=== PATIENT | male | born 1950 | race Caucasian/White ===

== ENCOUNTER 2019-10-27 22:35 | Inpatient (IN) | payer OTHER ==
[~2019-10-27] VITALS: Ht 182.9 cm; Wt 98.6 kg
[~2019-10-27 22:35] MED LIST: ATEN100 PO; DOXA4 PO; LISI20 PO; PRAV20 PO
[2019-10-27] MEDS ORDERED: METO50ER PO (23:05)
[2019-10-27] MEDS ORDERED: ACET500 PO (23:06)
[2019-10-27] MEDS ORDERED: DOXE50 PO (23:06)
[2019-10-27] MEDS ORDERED: METF500C PO (23:06)
[2019-10-27 23:37] LABS: BASOPHILS ABSOLUTE AUTO 0.01 K/mm3 (0.00-0.23); BASOPHILS PERCENT AUTO 0 % (0-2); EOSINOPHILS PERCENT AUTO 0 % (0-6); Hemoglobin 15.2 g/dL (13.5-17.5); IMMATURE GRAN ABSOLUTE AUTO 0.03 K/mm3 (0.00-0.10); IMMATURE GRAN PERCENT AUTO 1 % (0-1); LYMPHOCYTES ABSOLUTE AUTO 0.28 K/mm3 (0.84-5.20); LYMPHOCYTES PERCENT AUTO 6 % (21-46); MONOCYTES ABSOLUTE AUTO 0.32 K/mm3 (0.16-1.47); MONOCYTES PERCENT AUTO 7 % (4-13); Mean Corpuscular HGB 30.6 pg (26.0-34.0); Mean Corpuscular HGB Conc 34.5 g/dL (31.5-36.5); Mean Corpuscular Volume 89 fL (80-100); Mean Platelet Volume 10.3 fL (9.1-12.4); NEUTROPHILS ABSOLUTE AUTO 4.27 K/mm3 (1.96-9.15); NEUTROPHILS PERCENT AUTO 87 % (41-73); Platelet Count 119 K/mm3 (150-400); RDW Coefficient Variation 11.9 % (11.7-14.2); RDW Standard Deviation 38.7 fL (35.1-46.3); Red Blood Cell Count 4.96 M/mm3 (4.30-5.90); White Blood Cell Count 4.91 K/mm3 (4.00-11.30)
[2019-10-27 23:55] LABS: Alanine Aminotransfer (ALT/SGP 28 U/L (12-78); Albumin, Blood 3.4 g/dL (3.4-5.0); Alk Phos 96 U/L (50-136); Anion Gap 11 mmol/L (6-16); Aspartate Aminotrans (AST/SGOT 19 U/L (12-37); Bilirubin, Total 1.4 mg/dL (0.1-1.0); Blood Urea Nitrogen 23 mg/dL (8-24); Bun/Creatinine Ratio 22.3 (12.0-20.0); CO2, Blood 23 mmol/L (21-32); Calcium, Blood 8.5 mg/dL (8.5-10.1); Chloride, Blood 101 mmol/L (98-108); Creatinine, Blood 1.03 mg/dL (0.60-1.20); Globulin, Blood 3.5 g/dL (2.2-4.0); Glomerular Filtration Rate >60 (60-); Glucose, Blood 156 mg/dL (70-99); Potassium, Blood 3.5 mmol/L (3.5-5.5); Sodium, Blood 135 mmol/L (136-145); Total Protein, Blood 6.9 g/dL (6.4-8.2)
[2019-10-28 04:27] LABS: Appearance, Urine Clear (Clear); Color, Urine Amber (P-Yellow); Glucose Qualitative, Urine Neg (Neg); Leukocyte Esterase, Urine Neg (Neg); Nitrite, Urine Neg (Neg); Protein, Urine Neg (Neg); Source, Urine Clean Catch
[2019-10-28] MEDS ORDERED: Isosorbide Mono30 MG PO (04:27)
[2019-10-28 04:28] LABS: Bacteria Few /hpf; Bilirubin, Urine Neg (Neg); Blood, Urine 1+ (Neg); Ketones, Urine Neg (Neg); Red Blood Cells, Urine 0-2 /hpf (0-2); Squamous Epithelial Cells Not Seen /hpf (Few); Urobilinogen, Urine NORM (Normal); White Blood Cells, Urine 0-2 /hpf (0-5)
[2019-10-28] MEDS ORDERED: ATOR20 PO (04:28)
[2019-10-28] MEDS ORDERED: LOSA50 PO (04:28)
[2019-10-28] MEDS ORDERED: METF500 PO (04:28)
[2019-10-28] MEDS ORDERED: AMLO10 PO (04:28)
[2019-10-28] MEDS ORDERED: GLUC500 PO (04:29)
[2019-10-28] MEDS ORDERED: Metoprolol Tart25 MG PO (04:29)
[2019-10-28] MEDS ORDERED: DOXA4 PO (04:29)
[2019-10-28] MEDS ORDERED: CHLO25B PO (04:31)
[2019-10-28 07:27] LABS: Adenovirus Not Detected (NOT DETECT); Bordetella pertussis Not Detected (NOT DETECT); Chlamydophila pneumoniae Not Detected (NOT DETECT); Coronavirus 229E Not Detected (NOT DETECT); Coronavirus HKU1 Not Detected (NOT DETECT); Coronavirus NL63 Not Detected (NOT DETECT); Coronavirus OC43 Not Detected (NOT DETECT); Human Metapneumovirus Not Detected (NOT DETECT); Human Rhinovirus/Enterovirus Not Detected (NOT DETECT); Influenza A Not Detected (NOT DETECT); Influenza A/2009-H1 Not Detected (NOT DETECT); Influenza A/H1 Not Detected (NOT DETECT); Influenza A/H3 Not Detected (NOT DETECT); Influenza B Not Detected (NOT DETECT); Mycoplasma pneumoniae Not Detected (NOT DETECT); Parainfluenza Virus 1 Not Detected (NOT DETECT); Parainfluenza Virus 2 Not Detected (NOT DETECT); Parainfluenza Virus 3 Not Detected (NOT DETECT); Parainfluenza Virus 4 Not Detected (NOT DETECT); Respiratory Syncytial Virus Not Detected (NOT DETECT)
--- NOTE | 2019-10-28 07:30 | NUR ---
PT TO ICU @ 0454 VIA GUREFRAIN WITH ED RN. PT ALERT AND ORIENTED TO SELF, PLACE, EVENT AND FOLLOWING DIRECTIONS. PT TACHYPNEIC, DENIES SOB, ON 2L O2 PER NC, CRACKLES NOTED BILAT TO THE BASES, HR 90'S-110, BP STABLE WITH SBP 120'S. LACTIC ACID 2.5, NOTIFIED DR DELVALLE, NO NEW ORDERS AT THIS TIME. PT DECLINED FLU VACCINE AND BUMEX. RESTING COMFORTABLY IN BED, ORIENTED TO ROOM AND CALL LIGHT, CALL LIGHT WITHIN REACH. REPORT GIVEN TO PRISCILA AZEVEDO.
--- NOTE | 2019-10-28 07:39 | NUR ---
START OF SHIFT NOTE: RECEIVED REPORT FROM PRITI JONES RN, ASSUMED CARE, PATIENT IS AWAKE, ALERT AND ORIENTED, DENIES PAIN, AFEBRILE, C/O BEING REALLY TIRED, STATED "YESTERDAY TOOK A LOT OUT OF ME", PATIENT HAD T-MAX OF 103.8, NOW 97.9, PATIENT IS URINATING WITHOUT ANY PROBLEMS, HAD 325 CC OUT FOR ME, ON 2L NC, O2 SATURATION IN MID 90'S, LUNGS SOUNDS ARE SLIGHTLY CRACKLY ON RIGHT UPPER/MIDDLE/LOWER LOBES, LUNGS CLEAR ON LEFT, A-FIB, MURMUR PRESENT, PATIENT REPORTS HE HAD THE MURMUS FOR YEARS, BOWEL TONES HYPOACTIVE, PEDAL PULSES PLAPABLE, PATIENT DENIES ANY NEEDS AT THIS TIME, CALL LIGHT IN REACH, WILL CONTINUE TO MONITOR.
--- NOTE | 2019-10-28 08:48 | NUR ---
PATIENT RESTING COMFORTABLY, TOOK AM MEDICATION WITH NO PROBLEM SWALLOWING, USES URINAL APPROPRIATELY, CALL LIGHT IN REACH, WILL CONTINUE TO MONITOR.
--- NOTE | 2019-10-28 08:51 | NUR ---
LAB IN TO DRAW LACTIC ACID.
--- NOTE | 2019-10-28 09:56 | NUR ---
LACTIC ACID RESULT IS 3.1 WHICH IS UP FROM 2.5 LAST NIGHT, DR. RODRIGES WAS NOTIFIED, NO NEW ORDERS RECEIVED.
--- NOTE | 2019-10-28 10:28 | NUR ---
ATTEMPTED TO CALL DR. RODRIGES, LEFT MESSAGE, AWAITING CALL BACK.
--- NOTE | 2019-10-28 10:33 | NUR ---
DR. RODRIGES CALLED BACK, NOT CONCERNED ABOUT INCREASE IN LACTIC ACID, NEW ORDERS RECEIVED.
--- NOTE | 2019-10-28 11:15 | NUR ---
DR. RODRIGES IN TO SEE PATIENT, SPOKE WITH AND UPDATE PROVIDED, ALL QUESTIONS ANSWERED, NO NEW ORDERS AT THIS TIME.
--- NOTE | 2019-10-28 14:03 | NUR ---
PATIENT IS RESTING COMFORTABLY, EATING HIS MEALS, OTHERWISE SLEEPS MOST OF THE TIME, STATES THAT "HE IS STILL REALLY TIRED", AT BEDSIDE, CALL LIGHT IN REACH, WILL CONTINUE TO MONITOR.
--- NOTE | 2019-10-28 17:27 | NUR ---
PATIENT EATING DINNER WITH REALLY GOOD APPETITE, STATED EARLIER THAT HE IS "HUNGRY AND HE FEELS MUCH BETTER", AT BEDSIDE, CALL LIGHT IN REACH, WILL CONTINUE TO MONITOR.
--- NOTE | 2019-10-28 18:15 | NUR ---
SHIFT SUMMARY NOTE: NO ACUTE EVENTS DURING THIS SHIFT, PATIENT REMAINS AFEBRILE AND DENIES PAIN, MUCH MORE ALERT THIS EVENING, REPORTED THAT HE TAKES HIS BLOOD PRESSURE MEDICATION HALF AND HALF, IN THE MORNING AND AT NIGHT, PATIENT RECEIVED THEM TOGETHER THIS MORNING AND HIS BLOOD PRESSURE DROPPED INTO THE MID TO UPPER NINETIES, PATIENT SLEPT MOST OF THE DAY, REMAINS IN A-FIB WITH CONTROLLED HR IN 70'S TO 80'S, ON 2L NC SATING IN MID TO UPPER 90'S, USES URINAL AND HAD ADEQUATE OUTPUT, URINE CONTINUES TO APPEAR SLIGHTLY ORANGE, ONE SET OF BLOOD CULTURES SHOWED GRAM POSITIVE COCCI IN CHAINS, THIS RESULT WAS CALLED TO DR. RODRIGES, NO NEW ORDERS RECEIVED, PATIENT IS ALREADY ON LEVAQUIN, LR AT 100 CC/HR, BUT PATIENT IS EATING AND DRINKING WELL, FOR DETAILS SEE SHIFT ASSESSMENT DOCUMENTATION AND NURSES NOTES, AT BEDSIDE, CALL LIGHT IN REACH, WILL CONTINUE TO MONITOR.
[2019-10-29 03:44] LABS: BASOPHILS ABSOLUTE AUTO 0.01 K/mm3 (0.00-0.23); BASOPHILS PERCENT AUTO 0 % (0-2); EOSINOPHILS PERCENT AUTO 0 % (0-6); Hematocrit 40.6 % (37.0-53.0); IMMATURE GRAN ABSOLUTE AUTO 0.03 K/mm3 (0.00-0.10); IMMATURE GRAN PERCENT AUTO 1 % (0-1); LYMPHOCYTES ABSOLUTE AUTO 0.59 K/mm3 (0.84-5.20); LYMPHOCYTES PERCENT AUTO 9 % (21-46); MONOCYTES ABSOLUTE AUTO 0.61 K/mm3 (0.16-1.47); MONOCYTES PERCENT AUTO 10 % (4-13); Mean Corpuscular HGB 30.4 pg (26.0-34.0); Mean Corpuscular HGB Conc 34.5 g/dL (31.5-36.5); Mean Corpuscular Volume 88 fL (80-100); Mean Platelet Volume 10.8 fL (9.1-12.4); NEUTROPHILS PERCENT AUTO 80 % (41-73); Platelet Count 90 K/mm3 (150-400); RDW Coefficient Variation 11.9 % (11.7-14.2); RDW Standard Deviation 38.4 fL (35.1-46.3); White Blood Cell Count 6.34 K/mm3 (4.00-11.30)
[2019-10-29 03:58] LABS: Anion Gap 7 mmol/L (6-16); Blood Urea Nitrogen 20 mg/dL (8-24); Bun/Creatinine Ratio 21.6 (12.0-20.0); CO2, Blood 25 mmol/L (21-32); Calcium, Blood 8.1 mg/dL (8.5-10.1); Chloride, Blood 101 mmol/L (98-108); Creatinine, Blood 0.93 mg/dL (0.60-1.20); Glomerular Filtration Rate >60 (60-); Glucose, Blood 103 mg/dL (70-99); Potassium, Blood 3.6 mmol/L (3.5-5.5); Sodium, Blood 133 mmol/L (136-145)
--- NOTE | 2019-10-29 04:43 | NUR ---
SHIFT SUMMARY PATIENT HAS SLEPT OFF AND ON THROUGH NIGHT. BREATHING EFFORT SEEMS IMPROVED, ABLE TO MOVE AROUND IN BED WITH MINIMAL DYSPNEA. LUNG SOUNDS STILL CLEAR/DIMINISHED. GOOD URINARY OUTPUT. VSS. NO C/O PAIN. ASSESSMENT IS CHARTED. WILL CONTINUE TO MONITOR.
--- NOTE | 2019-10-29 07:24 | NUR ---
Received in room report from Tyler AZEVEDO. Patient just transfered to chair with full 1 assist and currently remains in chair. He is on 2 L O2 via NC and sats 95%. He denies any current needs or pain that needs intervention.He has 18ga IV LFA dressining intact and site WNL's and is infusing LR at 125ml/hr. He is tachy at 105 and BP WNL's, See VS in EMR. He use urinal appropriately. He is alert and oriented and is able to communicate his needs.
--- NOTE | 2019-10-29 09:30 | NUR ---
Patient back and forth to chair r/t to ECHO needing to be done. Dr Cruz has been into see patient and has coomunicated plan. He tolerated am meds and breakfast well. He states feeling a little stronger since being up and down. He remains on LR at 200ml/hr. lLinen changed.
--- NOTE | 2019-10-29 10:34 | NUR ---
eCHOCARDIOGRAM COMPLETED.
--- NOTE | 2019-10-29 12:11 | NUR ---
is her and wants to meet with Dr Cruz andfind out new plan. He was called and he will come see her. He has been using urinal about every hour and has a total of 1800 ml up to now. VSS. He is currently resting and lunch at his bedside when he awakens
--- NOTE | 2019-10-29 13:32 | NUR ---
Patient resting. LR reduced to 50ml/hr per Dr Cruz. No other significant changes. He remains on 2L O2 and sast low 90%'s. He has low grade fever 99.3 and will medicate with tylenol.
--- NOTE | 2019-10-29 15:00 | NUR ---
Dr Cruz ordered VERNON and called cardiology consult and talked with Dr Ron. Informed family that he may not see them til tomorrow if busy. He has been sleeping with brief awakenings for care. He denies any pain or other needs. has been at bedside and feels better that Dr Cruz spent the time to explain everything. VSS. He remains on 2 L O2 via NC and sats mid 90%'s.
--- NOTE | 2019-10-29 17:30 | NUR ---
Dr Ron has not been by to consult yet and family being patient. He remains sleeping, sats good on 2L. His CBG 109 and has not need coverage all day. No significant changes with patient. He remains on LR at 50ml/hr. Patient being seen by Dr Ron for murmur/ septic.
--- NOTE | 2019-10-30 06:01 | NUR ---
SHIFT SUMMARY PATIENT SLEPT WELL THROUGH NIGHT. AROUND 03:00 PATIENT GOT UP TO USE COMMODE, WAS S.O.B. AFTER GETTING BACK TO BED, AUDIBLY WHEEZING. OBTAINED UPDRAFT ORDERS, HOWEVER PATIENT RESOLVED BREATHING DIFFICULTY WITH REST. FAMILY REVEALED PATIENT NORMALLY WEARS CPAP AT NIGHT, OFFERED TO GO HOME AND GET IT. WAS BROUGHT IN, PATIENT ON MASK ~ 05:00 PER RT, THEY WERE ABLE TO OBTAIN CLEAN MASK/TUBING. VSS. NO C/O PAIN. ASSESSMENT IS CHARTED. WILL CONTINUE TO MONITOR.
[2019-10-30 10:27] LABS: BASOPHILS ABSOLUTE AUTO 0.02 K/mm3 (0.00-0.23); BASOPHILS PERCENT AUTO 0 % (0-2); EOSINOPHILS ABSOLUTE AUTO 0.01 K/mm3 (0.00-0.68); EOSINOPHILS PERCENT AUTO 0 % (0-6); Hematocrit 40.1 % (37.0-53.0); IMMATURE GRAN ABSOLUTE AUTO 0.03 K/mm3 (0.00-0.10); IMMATURE GRAN PERCENT AUTO 1 % (0-1); LYMPHOCYTES ABSOLUTE AUTO 1.03 K/mm3 (0.84-5.20); LYMPHOCYTES PERCENT AUTO 18 % (21-46); MONOCYTES ABSOLUTE AUTO 0.66 K/mm3 (0.16-1.47); MONOCYTES PERCENT AUTO 12 % (4-13); Mean Corpuscular HGB 30.7 pg (26.0-34.0); Mean Corpuscular HGB Conc 34.9 g/dL (31.5-36.5); Mean Corpuscular Volume 88 fL (80-100); NEUTROPHILS ABSOLUTE AUTO 4.01 K/mm3 (1.96-9.15); NEUTROPHILS PERCENT AUTO 70 % (41-73); Platelet Count 75 K/mm3 (150-400); RDW Standard Deviation 38.5 fL (35.1-46.3); Red Blood Cell Count 4.56 M/mm3 (4.30-5.90); White Blood Cell Count 5.76 K/mm3 (4.00-11.30)
--- NOTE | 2019-10-30 18:03 | NUR ---
SUMMARY Pt on room air for entire shift. EKG obtained. Atrial fibrilaltion with rate ranging between 95-105. No reports of chest pain. Mild dyspnea with exertion. Pt OOB to chair for dinner. Tolerated activity well. Plan for pt to have VERNON tomorrow at 1000. Will continue to closely monitor until care handoff and bedside report with oncoming RN.
--- NOTE | 2019-10-30 19:15 | NUR ---
ASSUMED CARE AT 1915. PT ALERT AND ORINTATED, FOLLOWS COMMANDS, MOVE ALL EXTREMETIES WEAKLY, ABLE TO AMBULATE TO TOILET. ON 2L NC. LOW GRADE TEMP, DENIES SOB OR CHEST PAIN.
--- NOTE | 2019-10-30 22:00 | NUR ---
PT ON CPAP
[2019-10-31 04:03] LABS: BASOPHILS ABSOLUTE AUTO 0.01 K/mm3 (0.00-0.23); BASOPHILS PERCENT AUTO 0 % (0-2); EOSINOPHILS ABSOLUTE AUTO 0.03 K/mm3 (0.00-0.68); EOSINOPHILS PERCENT AUTO 1 % (0-6); Hematocrit 41.2 % (37.0-53.0); Hemoglobin 14.2 g/dL (13.5-17.5); IMMATURE GRAN ABSOLUTE AUTO 0.03 K/mm3 (0.00-0.10); IMMATURE GRAN PERCENT AUTO 1 % (0-1); LYMPHOCYTES ABSOLUTE AUTO 1.09 K/mm3 (0.84-5.20); LYMPHOCYTES PERCENT AUTO 19 % (21-46); MONOCYTES ABSOLUTE AUTO 0.77 K/mm3 (0.16-1.47); MONOCYTES PERCENT AUTO 13 % (4-13); Mean Corpuscular HGB 30.3 pg (26.0-34.0); Mean Corpuscular HGB Conc 34.5 g/dL (31.5-36.5); Mean Corpuscular Volume 88 fL (80-100); Mean Platelet Volume 11.3 fL (9.1-12.4); NEUTROPHILS ABSOLUTE AUTO 3.97 K/mm3 (1.96-9.15); NEUTROPHILS PERCENT AUTO 67 % (41-73); Platelet Count 83 K/mm3 (150-400); RDW Coefficient Variation 12.1 % (11.7-14.2); RDW Standard Deviation 38.9 fL (35.1-46.3); Red Blood Cell Count 4.68 M/mm3 (4.30-5.90)
[2019-10-31 04:20] LABS: Alanine Aminotransfer (ALT/SGP 27 U/L (12-78); Albumin, Blood 2.5 g/dL (3.4-5.0); Albumin/Globulin Ratio 0.7 (0.8-1.8); Alk Phos 65 U/L (50-136); Anion Gap 7 mmol/L (6-16); Aspartate Aminotrans (AST/SGOT 50 U/L (12-37); Bilirubin, Total 1.3 mg/dL (0.1-1.0); Blood Urea Nitrogen 20 mg/dL (8-24); Bun/Creatinine Ratio 24.2 (12.0-20.0); CO2, Blood 29 mmol/L (21-32); Calcium, Blood 8.3 mg/dL (8.5-10.1); Chloride, Blood 99 mmol/L (98-108); Creatinine, Blood 0.83 mg/dL (0.60-1.20); Globulin, Blood 3.5 g/dL (2.2-4.0); Glomerular Filtration Rate >60 (60-); Glucose, Blood 107 mg/dL (70-99); Potassium, Blood 3.4 mmol/L (3.5-5.5); Sodium, Blood 135 mmol/L (136-145)
--- NOTE | 2019-10-31 06:43 | NUR ---
PT ALERT AND ORINETATED. FOLLOWS COMMANDS MOVES ALL EXTREMES. VITALS WNL. PT WAS NPO AT MIDNIGHT. ABLE TO BRUSH DENTURES AND WASH FACE IN MORNING. PT PENDING VERNON AT 1000. NO ACUTE EVENTS WILL CONTINUE TO MONITOR
--- NOTE | 2019-10-31 08:18 | NUR ---
DR NDIAYE IN TO SEE PT Provider reinforces plan for VERNON at 1000. No cardioversion planned as pt's rate is controlled. Provider clarifies that DNR/DNI status will be suspended for procedure. Pt verbalizes undertanding. Pt has been NPO since midnight. AM meds will be held until post procedure.
--- NOTE | 2019-10-31 10:30 | NUR ---
VERNON 1001- RT at bedside. SpO2 93%. Pt placed on 2 LPM NC 1004- Time out called by Dr Marcus 1005- Medications given. Refer to MAR and flowsheet 1007- Titrated up to 4 LPM NC by RT. SpO2 92%. Pt awake and communicating with staff 1009- Medications given. Refer to MAR and flowsheet 1020- Procedure complete. Pt awake and talking to staff.
--- NOTE | 2019-10-31 12:13 | NUR ---
UPDATE Gag reflex present. PO meds given. Pt ate lunch and tolerated well. Eliquis given.
--- NOTE | 2019-10-31 13:33 | NUR ---
TRANSFER TO PCU 11 Pt transferred from ICU 1 to PCU 11 via wheelchair. Pt's spouse notified of update. Dr Cruz updated. Chart, medications, and belongings transferred with patient.
--- NOTE | 2019-10-31 17:26 | NUR ---
SHIFT SUMMARY PT TRANSFERRED TO UNIT FROM ICU AT APPROXIMATELY 1330. VS STABLE. HR AFIB 90'S. BP STABLE. AFEBRILE AT THIS TIME. PT DENIES ANY PAIN. PT WEAK AND REQUIRES 1 ASSIST WITH WALKER FOR TRANSFER. STATUS CHANGED TO MEDICAL AT THIS TIME AND TELEMETRY HAS BEEN DISCONTINUED. AT BEDSIDE. PT REQUESTING A SHOWER AFTER DINNER THIS EVENING. WILL CONTINUE TO MONITOR AND REPORT TO ONCOMING RN. CALL LIGHT IN REACH.
--- NOTE | 2019-10-31 20:15 | NUR ---
ASSUMED CARE PATIENT IS AWAKE AND ALERT LYING IN BED IN NO SIGNS OF DISTRESS, 3 FAMILY IN ROOM. ALL VSS AND WNL, PATIENT DENIES PAIN, DENIES DISCOMFORT. O2 SATURATION ON ROOM AIR IS 94%. WILL CONTINUE TO MONITOR AND PROVIDE CARE; BED LOCKED AND LOW, CALL LIGHT IN REACH
[2019-11-01 03:32] LABS: BASOPHILS ABSOLUTE AUTO 0.01 K/mm3 (0.00-0.23); BASOPHILS PERCENT AUTO 0 % (0-2); EOSINOPHILS ABSOLUTE AUTO 0.08 K/mm3 (0.00-0.68); EOSINOPHILS PERCENT AUTO 1 % (0-6); Hematocrit 40.8 % (37.0-53.0); Hemoglobin 13.8 g/dL (13.5-17.5); IMMATURE GRAN ABSOLUTE AUTO 0.05 K/mm3 (0.00-0.10); IMMATURE GRAN PERCENT AUTO 1 % (0-1); LYMPHOCYTES PERCENT AUTO 23 % (21-46); MONOCYTES ABSOLUTE AUTO 0.85 K/mm3 (0.16-1.47); MONOCYTES PERCENT AUTO 13 % (4-13); Mean Corpuscular HGB Conc 33.8 g/dL (31.5-36.5); Mean Corpuscular Volume 89 fL (80-100); Mean Platelet Volume 10.3 fL (9.1-12.4); NEUTROPHILS ABSOLUTE AUTO 3.94 K/mm3 (1.96-9.15); NEUTROPHILS PERCENT AUTO 61 % (41-73); Platelet Count 101 K/mm3 (150-400); RDW Coefficient Variation 11.9 % (11.7-14.2); RDW Standard Deviation 38.5 fL (35.1-46.3); White Blood Cell Count 6.43 K/mm3 (4.00-11.30)
[2019-11-01 03:46] LABS: Anion Gap 8 mmol/L (6-16); Blood Urea Nitrogen 21 mg/dL (8-24); Bun/Creatinine Ratio 24.8 (12.0-20.0); CO2, Blood 27 mmol/L (21-32); Calcium, Blood 8.3 mg/dL (8.5-10.1); Chloride, Blood 99 mmol/L (98-108); Creatinine, Blood 0.85 mg/dL (0.60-1.20); Glomerular Filtration Rate >60 (60-); Glucose, Blood 124 mg/dL (70-99); Potassium, Blood 3.3 mmol/L (3.5-5.5); Sodium, Blood 134 mmol/L (136-145)
--- NOTE | 2019-11-01 07:28 | NUR ---
REPORT FROM JOLLY HAAS. PATIENT REPORTED HE SLEPT WELL. URINE DARK. FLUIDS ENCOURAGED.
--- NOTE | 2019-11-01 08:01 | NUR ---
SHIFT SUMMARY PATIENT'S FAMILY LEFT AROUND 2100, PATIENT RECEIVED EVENING MEDS WITHOUT ISSUE AND PROMPTLY WENT TO BED, USING HIS HOME CPAP. HE STAYED IN BED THE REST OF THE SHIFT, USING URINAL APPROPRIATELY FROM BED, WITH NO NEEDS, DENYING PAIN, DENYING DISCOMFORT. ALL VSS, O2 SATURATION ABOVE 92% ON ROOM AIR, THROUGHOUT SHIFT. CARE AND REPORT GIVEN TO ONCOMING SHIFT AT 0700, BED LOCKED AND LOW, CALL LIGHT IN REACH
--- NOTE | 2019-11-01 11:31 | NUR ---
MD VISIT DR. FARRIS IN.
--- NOTE | 2019-11-01 13:25 | NUR ---
MD VISIT DR. NDIAYE IN. WANTS PATIENT TO FOLLOW UP WITH HIM IN A COUPLE OF WEEKS
--- NOTE | 2019-11-01 13:31 | NUR ---
PATIENT USED CALL LIGHT TO ASK TO HAVE TEMP CHECKED BECAUSE HE FELT HOT. TEMP IN ROOM WAS 80. EXTRA BLANKET REMOVED AND TYLENOL GIVEN FOR TEMP 100.9
--- NOTE | 2019-11-01 15:12 | NUR ---
REPORT TO MARCOS Toth RN. PATIENT WILL BE MOVING TO 363
--- NOTE | 2019-11-01 16:00 | NUR ---
REPORT RECEIVED FROM GUI AZEVEDO PCU. PT TRANSPORTED TO ROOM 1330. PT SETTLED TO ROOM CALL LITE IN REACH, INDEPENDANT IN ROOM. CALLS APPROP. BED IN LOW POSITION
--- NOTE | 2019-11-01 17:05 | NUR ---
PT REFUSING INSULIN. STATES NOT TAKING AT HOME AND NOT TAKING HERE. WE ARE NOT DOING CBG'S/. PT REFUSING. CALLED DR FARRIS. PT STATES METFORMIN 500 MG PO DAILY IS WHAT HE TAKES FOR YEARS. DR AGREED TO HAVE HIM START ON METFORMIN AGAIN AND D.C INSULIN AND CBG.S DONE
--- NOTE | 2019-11-01 17:19 | NUR ---
PT PLEASANT COOP SINCE TX TO ROOM. HE JUST WALKED TO DOOR AND FELT A LITTLE UNSTEADY. RESTED HAND ON DOOR JAM, HAND SLIPPED DOWN WHEN UNSTEADY. ACCIDENTALLY TRIPPED CODE BLUE ALARM. HE QUITE ASTONISHED. APPOLOGIZED PROFUSELY. REQUESTED PT TO CALL ME IF FEELS LEAST BIT UNSTEADY. HE AGREED. NO OTHER CONCERNS ATTHIS TIME. BED IN LOW POSITION, CALL LITE IN [facility], CALLS APPROP
[2019-11-02 04:58] LABS: Anion Gap 6 mmol/L (6-16); Blood Urea Nitrogen 15 mg/dL (8-24); Bun/Creatinine Ratio 21.4 (12.0-20.0); CO2, Blood 29 mmol/L (21-32); Chloride, Blood 99 mmol/L (98-108); Glomerular Filtration Rate >60 (60-); Glucose, Blood 123 mg/dL (70-99); Potassium, Blood 3.2 mmol/L (3.5-5.5); Sodium, Blood 134 mmol/L (136-145)
--- NOTE | 2019-11-02 09:00 | NUR ---
PT PLEASANT COOP A/O. DENIES PAIN. REPORTS WEAKNESS. TALKING ON PHONE. STATES READY TO GO HOME. H/R IRREG, MURMER NOTED. NO TELE. LUNGS CLEAR WITH LIGHT WHEEZES MIDLINE CHEST. RESP EASY, UNLABORED. ON R.A. BT X4 LAST BM YEST PER PT. VOIDS PER BATHROOM. INDEPENDANT IN ROOM. BED IN LOW POSITION, CALL LITE IN REACH, CALLS APPROP
[2019-11-02] MEDS ORDERED: ELIQUIS5 MG PO (10:26)
[2019-11-02] MEDS ORDERED: TOPROL XL25 MG PO (10:26)
[2019-11-02] MEDS ORDERED: LEVFLO500 PO (10:27)
[2019-11-02] MEDS ORDERED: K-Dur10 MEQ PO (10:27)
[2019-11-02] MEDS ORDERED: ALBU90OI INH (10:28)
--- NOTE | 2019-11-02 12:04 | NUR ---
DISCHARGE REVIEWED WITH PT AND FAMILY. IV PULLED INTACT. NO TELE. PT VERBALIZED UNDERSTNDING OF MEDS AND INSTRUCT. PT WHEELED TO DOOR AT 1208 BY AIDE.
== END 2019-11-02 12:00 | disposition home or self-care (01) | DRG 871 ==
LOC: ER 22:35 → ERHOLD 22:36 → ICUE 10-28 04:55 → PCU 10-31 13:34 → MEDS 11-01 15:30
PROVIDERS: Emergency Medicine; Internal Medicine; Internal Medicine Interventional Cardiology; ADMIT Internal Medicine
PROC: 5A09357 Assistance with Respiratory Ventilation, Less than 24 Consecutive Hours, Continuous Positive Airway Pressure (ICD-10-PCS; principal; 2019-10-27)
DX: A40.8 Other streptococcal sepsis (principal); J96.01 Acute respiratory failure with hypoxia; E87.1 Hypo-osmolality and hyponatremia; R65.20 Severe sepsis without septic shock; I48.91 Unspecified atrial fibrillation; I10 Essential (primary) hypertension; J44.9 Chronic obstructive pulmonary disease, unspecified; I25.10 Atherosclerotic heart disease of native coronary artery without angina pectoris; I35.0 Nonrheumatic aortic (valve) stenosis; R30.0 Dysuria; E11.9 Type 2 diabetes mellitus without complications; E87.6 Hypokalemia; D69.6 Thrombocytopenia, unspecified; E66.01 Morbid (severe) obesity due to excess calories; Z66 Do not resuscitate; Z88.0 Allergy status to penicillin; Z95.5 Presence of coronary angioplasty implant and graft; Z79.84 Long term (current) use of oral hypoglycemic drugs; Z79.899 Other long term (current) drug therapy; Z68.33 Body mass index [BMI] 33.0-33.9, adult
CPT/HCPCS: 0099U; 36415; 36416; 71045; 71046; 80048; 80053; 81001; 82947; 83605; 83735; 83880; 84145; 85025; 87040; 87184; 93005; 93010; 93306; 93312; 93325; 94640; 94644; 94660; 94760; 94762; 96361; 96365; 96367; 96372; 96375; 96376; 99285-25; A9270; G0378; J0696; J1650; J1956; J2250; J2930; J3010; J7030; J7120

== ENCOUNTER 2019-12-08 07:16 | Day surgery (SDC) | payer OTHER ==
[~2019-12-08] VITALS: Ht 180.3 cm; Wt 108.0 kg
[~2019-12-08 07:16] MED LIST changes: +ACET500 PO; +ALBU90OI INH; +AMLO10 PO; +ATEN50 PO; +ATOR20 PO; +CHLO25B PO; +DOXE50 PO; +ELIQUIS5 MG PO; +GLUC500 PO; +Isosorbide Mono30 MG PO; +K-Dur10 MEQ PO; +LEVFLO500 PO; +LOSA50 PO; +METF500 PO; +METF500C PO; +METO50ER PO; +Metoprolol Tart25 MG PO; +NIFEDIAC PO; +Pravachol40 MG PO; +TOPROL XL25 MG PO; +ZESTRIL40 M1 PO
--- NOTE | 2019-12-08 11:30 | NUR ---
9CC AIR REMOVED FROM R WRIST TR BAND. -BLEEDING OR SWELLING.
--- NOTE | 2019-12-08 12:16 | NUR ---
R WRIST TR BAND REMOVED. -BLEEDING OR SWELLING. PUNCTURE AREA CLEANED WITH NS. CLOTH DOT DRSG PLACED. R WRIST SPLINT REAPPLIED. IV REMOVED. PT AND VERBALIZED UNDERSTANDING OF WRITTEN AND VERBAL D/C INST. PT TAKEN OUT OF THE HRT CENTER VIA W/C.
== END 2019-12-08 12:15 | disposition home or self-care (01) ==
LOC: MHTC 07:16
PROC: 4A023N7 Measurement of Cardiac Sampling and Pressure, Left Heart, Percutaneous Approach (ICD-10-PCS; principal; 2019-12-08)
PROC: B201YZZ Plain Radiography of Multiple Coronary Arteries using Other Contrast (ICD-10-PCS; principal; 2019-12-08)
DX: I35.0 Nonrheumatic aortic (valve) stenosis (principal); I25.10 Atherosclerotic heart disease of native coronary artery without angina pectoris; I25.82 Chronic total occlusion of coronary artery; I10 Essential (primary) hypertension; Z79.899 Other long term (current) drug therapy; Z79.01 Long term (current) use of anticoagulants; F17.210 Nicotine dependence, cigarettes, uncomplicated; Z88.0 Allergy status to penicillin
CPT/HCPCS: 76937; 93454; 99152; 99153; C1769; C1894; J1644; J2250; J3010; J7030; Q9967

== ENCOUNTER 2024-10-30 11:13 | Inpatient (IN) | payer OTHER ==
[~2024-10-30] VITALS: Ht 182.9 cm; Wt 99.2 kg
[2024-10-30 11:50] LABS: BASOPHILS ABSOLUTE AUTO 0.03 K/mm3 (0.00-0.23); BASOPHILS PERCENT AUTO 0 % (0-2); EOSINOPHILS ABSOLUTE AUTO 0.03 K/mm3 (0.00-0.68); EOSINOPHILS PERCENT AUTO 0 % (0-6); Hematocrit 25.8 % (37.0-53.0); Hemoglobin 7.9 g/dL (13.5-17.5); IMMATURE GRAN ABSOLUTE AUTO 0.13 K/mm3 (0.00-0.10); IMMATURE GRAN PERCENT AUTO 1 % (0-1); LYMPHOCYTES ABSOLUTE AUTO 1.63 K/mm3 (0.84-5.20); LYMPHOCYTES PERCENT AUTO 11 % (21-46); MONOCYTES ABSOLUTE AUTO 0.94 K/mm3 (0.16-1.47); MONOCYTES PERCENT AUTO 6 % (4-13); Mean Corpuscular HGB 24.4 pg (26.0-34.0); Mean Corpuscular HGB Conc 30.6 g/dL (31.5-36.5); Mean Corpuscular Volume 80 fL (80-100); Mean Platelet Volume 9.2 fL (9.1-12.4); NEUTROPHILS ABSOLUTE AUTO 12.36 K/mm3 (1.96-9.15); NEUTROPHILS PERCENT AUTO 82 % (41-73); Platelet Count 310 K/mm3 (150-400); RDW Coefficient Variation 16.7 % (11.7-14.2); RDW Standard Deviation 46.8 fL (35.1-46.3); Red Blood Cell Count 3.24 M/mm3 (4.30-5.90); White Blood Cell Count 15.12 K/mm3 (4.00-11.30)
[2024-10-30] MEDS ORDERED: FINA5 PO (12:03)
[2024-10-30] MEDS ORDERED: TAMS.4ER PO (12:03)
[2024-10-30] MEDS ORDERED: CHLO25B PO (12:04)
[2024-10-30] MEDS ORDERED: LOSARTAN POTAS100 M1 PO (12:04)
[2024-10-30] MEDS ORDERED: VITAMIN D350 MC3 PO (12:05)
[2024-10-30] MEDS ORDERED: ASCO500 PO (12:07)
[2024-10-30] MEDS ORDERED: STIOLTO RESPIMAT4 G2 INH (12:07)
[2024-10-30] MEDS ORDERED: IRON PO (12:08)
[2024-10-30] MEDS ORDERED: VITAMIN B12500 MCG PO (12:08)
[2024-10-30] MEDS ORDERED: MSM1000 M2 PO (12:09)
[2024-10-30 12:24] LABS: Albumin, Blood 2.7 g/dL (3.4-5.0); Albumin/Globulin Ratio 0.6 (0.8-1.8); Bilirubin, Total 0.6 mg/dL (0.1-1.0); Bun/Creatinine Ratio 32.5 (12.0-20.0); Calcium, Blood 9.1 mg/dL (8.5-10.1); Creatinine, Blood 0.8 mg/dL (0.60-1.20); Globulin, Blood 4.2 g/dL (2.2-4.0); Potassium, Blood 3.4 mmol/L (3.5-5.5); Total Protein, Blood 6.9 g/dL (6.4-8.2)
[2024-10-30 12:26] LABS: Percent Saturation 5.4 % (20.0-50.0)
[2024-10-30 12:49] LABS: International Normalized Ratio 1.08; Prothrombin Time Results 11.5 Sec (9.7-11.5)
[2024-10-30 12:59] LABS: CORONAVIRUS COVID-19 AG Negative (NEGATIVE); INFLUENZA A AG Negative (NEGATIVE); INFLUENZA B AG Negative (NEGATIVE)
[2024-10-30] MEDS ORDERED: Acetaminophen 500 MG Tab PO ONE (14:20)
[2024-10-30] MEDS ORDERED: EPINEPhrine HCl 0.1 MG/ML STE Water 10ML SYR IV ONE (14:20)
[2024-10-30] MEDS ORDERED: Sodium Bicarb 8.4% 50 mEq Syringe IV ONE (14:20)
[2024-10-30] MEDS ORDERED: Ipratropium/Albuterol SulF 2.5-0.5MG/3 ML Amp INH SCH ×2 (15:40→19:25)
[2024-10-30] MEDS ORDERED: FLU VACC TS2024-25(6MOS UP)/PF 45 MCG/0.5 ML SYRINGE IM ONE (15:45)
[2024-10-30] MEDS ORDERED: Albuterol HFA200 ACT/6.7 GM INH INH PRN (15:55)
[2024-10-30] MEDS ORDERED: Acetaminophen 500 MG Tab PO PRN (16:05)
[2024-10-30 16:25] LABS: Hematocrit 23.3 % (37.0-53.0); Hemoglobin 7.2 g/dL (13.5-17.5); Mean Corpuscular HGB 24.3 pg (26.0-34.0); Mean Corpuscular HGB Conc 30.9 g/dL (31.5-36.5); Mean Corpuscular Volume 79 fL (80-100); Mean Platelet Volume 9.2 fL (9.1-12.4); Platelet Count 316 K/mm3 (150-400); RDW Coefficient Variation 16.7 % (11.7-14.2); RDW Standard Deviation 46.6 fL (35.1-46.3); Red Blood Cell Count 2.96 M/mm3 (4.30-5.90); White Blood Cell Count 13.75 K/mm3 (4.00-11.30)
[2024-10-30 17:05] VITALS: BP 108/55
[2024-10-30] MEDS ORDERED: Lactated Ringer's 1,000 ML IV SCH ×2 (17:55→20:05)
--- NOTE | 2024-10-30 19:15 | NUR ---
ADMISSION NOTE/SHIFT SUMMARY PATIENT A/OX4, ABLE TO MAKE NEEDS KNOWN. PLEASANT AND COOPERATIVE WITH CARE. PATIENT ADMITTED WITH ACUTE BLOOD LOSS [facility] PATIENT WITH POSITIVE GUAIC IN ED. PATIENT STATES HAS BEEN HAVING BLACK COLORED STOOLS FOR APPROX 3 MONTHS BUT ALSO STATES HE TAKES IRON DAILY. HAS ALSO BEEN SOB FOR THE LAST FEW MONTHS WITH RECEN T WEIGHT LASS OF 30 LBS, DECREASED APPETITE. PLAN TO HAVE ENDOSCOPY LATER TODAY WITH DR. RICE. PATIENT REMAINS NPO, Q6H BLOOD SUGAR CHECKS. DR. TALBOT CALLED THIS EVENING TO START PATIENT ON IV FLUDIS, LR RUNNING AT 150ML/HR. NEW IV PLACED TO RIGHT FOREARM UPON ADMISSION. PATIENT STATES HE IS A CURRENT SMOKER AND SMOKED 1 PPD. NO ASSISTIVE DEVICES USED AT BASELINE FOR AMBULATION. HOME CPAP AT BEDSIDE. PATIENT FEBRILE. NO OTHER CONCERNS AT THIS TIME. REPORT GIVEN TO CARDIAC CATHETERIZATION TECHNICIAN RN.
[2024-10-30] MEDS ORDERED: FEROSUL325 M1 PO (19:32)
[2024-10-30 19:53] VITALS: BP 115/71
--- NOTE | 2024-10-30 20:00 | NUR ---
Pt to ENDO.
[2024-10-30] MEDS ORDERED: propofoL 40 ML IV ONE (20:19)
[2024-10-30] MEDS ORDERED: Lidocaine HCl 2% 10 ML SDA ONE (20:19)
[2024-10-30] MEDS ORDERED: Phenylephrine HCl 10mg/ml 1 ml Vial ONE (20:20)
[2024-10-30 20:26] VITALS: BP 111/62
[2024-10-30 20:29] VITALS: BP 144/59
--- NOTE | 2024-10-30 20:52 | NUR ---
10/30/242051 Daxa Delacruz WITH DR. PETERSON; SEE ANESTHESIA RECORDS.
[2024-10-30] MEDS ORDERED: Atorvastatin 10 MG Tab PO SCH (21:00)
[2024-10-30] MEDS ORDERED: Finasteride 5 MG Tab PO SCH (21:00)
[2024-10-30] MEDS ORDERED: Tamsulosin HCl 0.4 MG Cap PO SCH (21:00)
[2024-10-30 21:52] VITALS: BP 125/73
[2024-10-30] MEDS ORDERED: Pantoprazole Sodium 40 MG Tab PO ONE (22:00)
[2024-10-30] MEDS ORDERED: Polyethylene Glycol 3350 17 gm PO ONE (22:00)
[2024-10-30 22:19] LABS: Hematocrit 23.8 % (37.0-53.0); Hemoglobin 7.1 g/dL (13.5-17.5); Mean Corpuscular HGB Conc 29.8 g/dL (31.5-36.5); Mean Corpuscular Volume 80 fL (80-100); Mean Platelet Volume 9.1 fL (9.1-12.4); Platelet Count 294 K/mm3 (150-400); RDW Coefficient Variation 16.5 % (11.7-14.2); RDW Standard Deviation 47.8 fL (35.1-46.3); Red Blood Cell Count 2.96 M/mm3 (4.30-5.90); White Blood Cell Count 13.67 K/mm3 (4.00-11.30)
[2024-10-31] VITALS (7 sets, daily range): BP systolic 103–124; BP diastolic 64–91
--- NOTE | 2024-10-31 03:46 | NUR ---
Pt A&O x4, VS varies, temp noted, c/o headache which both were medicated with tylenol 1000 mg. Pt stated that he takes 100mg of tylenol every 4 hrs at home and also take tylenol headache on occasion also inbetween. This nurse explained to Pt this was not good as he could permanantly damage liver and even overdose on the tylenol. Pt understood. On full liquids after EGD and doing well. He has had several episodes of dyspnea this shift with RT called and they administered neb tx, O2 sats always in high 90's on RA. Does wear his CPAP when he is sleeping. Pt up with SBA d/t occasional dizziness. Voiding adequate for this shift. Awaiting Colonoscopy on 11/01.
[2024-10-31 04:24] LABS: Hematocrit 21.5 % (37.0-53.0); Hemoglobin 6.5 g/dL (13.5-17.5); Mean Corpuscular HGB 24.2 pg (26.0-34.0); Mean Corpuscular HGB Conc 30.2 g/dL (31.5-36.5); Mean Corpuscular Volume 80 fL (80-100); Mean Platelet Volume 9.2 fL (9.1-12.4); Platelet Count 291 K/mm3 (150-400); RDW Coefficient Variation 16.5 % (11.7-14.2); RDW Standard Deviation 47.8 fL (35.1-46.3); Red Blood Cell Count 2.69 M/mm3 (4.30-5.90); White Blood Cell Count 14.78 K/mm3 (4.00-11.30)
[2024-10-31 04:44] LABS: Albumin, Blood 2.4 g/dL (3.4-5.0); Albumin/Globulin Ratio 0.7 (0.8-1.8); Bilirubin, Total 0.6 mg/dL (0.1-1.0); Bun/Creatinine Ratio 30.7 (12.0-20.0); Calcium, Blood 8.3 mg/dL (8.5-10.1); Creatinine, Blood 0.88 mg/dL (0.60-1.20); Globulin, Blood 3.6 g/dL (2.2-4.0); Potassium, Blood 3.4 mmol/L (3.5-5.5)
[2024-10-31] MEDS ORDERED: Pantoprazole Sodium 40 MG Tab PO SCH (06:00)
[2024-10-31] MEDS ORDERED: NS 1,000 ML BAG IR PRN (06:25)
[2024-10-31] MEDS ORDERED: NS 250 ML IV PRN (07:00)
[2024-10-31] MEDS ORDERED: Polyethylene Glycol 3350 17 gm PO ONE ×2 (08:00→15:00)
[2024-10-31] MEDS ORDERED: AmLODIPine Besylate 5 MG Tab PO SCH (09:00)
[2024-10-31] MEDS ORDERED: Ascorbic Acid 500 MG Tab PO SCH (09:00)
[2024-10-31] MEDS ORDERED: HydroCHLOROthiazide 25 mg Tab PO SCH (09:00)
[2024-10-31] MEDS ORDERED: Glucosamine Sulfate 500 MG Cap PO SCH (09:00)
[2024-10-31] MEDS ORDERED: Losartan Potassium 50 MG Tab PO SCH (09:00)
[2024-10-31] MEDS ORDERED: Cholecalciferol 1000 Unit Tablet (=25MCG) PO SCH (09:00)
[2024-10-31] MEDS ORDERED: Cyanocobalamin 100 MCG Tab PO SCH (09:00)
[2024-10-31 12:55] LABS: Hematocrit 24.6 % (37.0-53.0); Hemoglobin 7.6 g/dL (13.5-17.5); Mean Corpuscular HGB 24.4 pg (26.0-34.0); Mean Corpuscular HGB Conc 30.9 g/dL (31.5-36.5); Mean Corpuscular Volume 79 fL (80-100); Mean Platelet Volume 9.2 fL (9.1-12.4); Platelet Count 285 K/mm3 (150-400); Red Blood Cell Count 3.11 M/mm3 (4.30-5.90); White Blood Cell Count 16.86 K/mm3 (4.00-11.30)
[2024-10-31] MEDS ORDERED: Albuterol HFA200 ACT/6.7 GM INH INH PRN (14:05)
[2024-10-31] MEDS ORDERED: Ipratropium/Albuterol SulF 2.5-0.5MG/3 ML Amp INH SCH (14:05)
[2024-10-31] MEDS ORDERED: CefTRIAXone Sodium 1,000 MG in NS 100 ML IV SCH (14:30)
[2024-10-31] MEDS ORDERED: PredniSONE 20 MG Tab PO SCH (15:00)
[2024-10-31] MEDS ORDERED: Azithromycin 500 MG in NS 250 ML IV SCH (16:00)
--- NOTE | 2024-10-31 16:06 | NUR ---
PT HAD NO C/O PAIN. LOW GRADE FEVER THAT WAS CONTROLLED WITH PRN TYLENOL. MD AWARE. PT RANG APPROPRIATELY AND MADE NEEDS KNOWN. PT WILL BE STARTING BOWEL PREP FOR COLO 11/01 TOMORROW MORNING.
[2024-10-31 16:08] LABS: Adenovirus Not Detected (NOT DETECT); Coronavirus 229E Not Detected (NOT DETECT); Coronavirus HKU1 Not Detected (NOT DETECT); Coronavirus NL63 Not Detected (NOT DETECT); Coronavirus OC43 Not Detected (NOT DETECT); Human Metapneumovirus Not Detected (NOT DETECT); Human Rhinovirus/Enterovirus Not Detected (NOT DETECT); Influenza A/2009-H1 Not Detected (NOT DETECT); Influenza A/H1 Not Detected (NOT DETECT); Influenza A/H3 Not Detected (NOT DETECT); SARS-Cov-2 (COVID-19), BioFire Not Detected (NOT DETECT)
[2024-10-31 16:09] LABS: Bordetella pertussis Not Detected (NOT DETECT); Chlamydophila pneumoniae Not Detected (NOT DETECT); Influenza B Not Detected (NOT DETECT); Mycoplasma pneumoniae Not Detected (NOT DETECT); Parainfluenza Virus 1 Not Detected (NOT DETECT); Parainfluenza Virus 2 Not Detected (NOT DETECT); Parainfluenza Virus 3 Not Detected (NOT DETECT); Parainfluenza Virus 4 Not Detected (NOT DETECT); Respiratory Syncytial Virus Not Detected (NOT DETECT)
[2024-10-31 16:21] LABS: Acinetobacter baumannii DNA Not Detected copy/mL (NOT DETECT); Adenovirus DNA Not Detected (NOT DETECT); Chlamydia pneumonia Not Detected (NOT DETECT); Enterobacter cloacae DNA Not Detected copy/mL (NOT DETECT); Escherichia coli DNA Not Detected copy/mL (NOT DETECT); Haemophilus influenzae DNA Not Detected copy/mL (NOT DETECT); Human Coronavirus RNA Not Detected (NOT DETECT); Human Metapneumovirus RNA Not Detected (NOT DETECT); Influenza virus A RNA Not Detected (NOT DETECT); Influenza virus B RNA Not Detected (NOT DETECT); Klebsiella aerogenes DNA Not Detected copy/mL (NOT DETECT); Klebsiella oxytoca DNA Not Detected copy/mL (NOT DETECT); Klebsiella pneumoniae DNA Not Detected copy/mL (NOT DETECT); Legionella pneumophila Not Detected (NOT DETECT); Moraxella catarrhalis DNA Not Detected copy/mL (NOT DETECT); Mycoplasma pneumoniae Not Detected (NOT DETECT); Parainfluenza virus RNA Not Detected (NOT DETECT); Proteus sp DNA Not Detected copy/mL (NOT DETECT); Pseudomonas aeruginosa DNA Not Detected copy/mL (NOT DETECT); Respiratory syncytial Vir RNA Not Detected (NOT DETECT); Rhinovirus+Enterovirus RNA Not Detected (NOT DETECT); Serratia marcescens DNA Not Detected copy/mL (NOT DETECT); Staphylococcus aureus DNA Not Detected copy/mL (NOT DETECT); Streptococcus agalactiae DNA Not Detected copy/mL (NOT DETECT); Streptococcus pneumoniae DNA Not Detected copy/mL (NOT DETECT); Streptococcus pyogenes DNA Not Detected copy/mL (NOT DETECT)
[2024-10-31] MEDS ORDERED: Peg/Electrolytes 4,000 ML BTL PO ONE (18:00)
[2024-11-01] VITALS (45 sets, daily range): BP systolic 69–125; BP diastolic 53–86
--- NOTE | 2024-11-01 04:15 | NUR ---
SHIFT SUMMARY ADMITTED FOR GI BLEED, DYSPNEA. FULL CODE. PLAN IS FOR A COLONOSCOPY THIS MORNING. PATIENT HAS BEEN NPO SINCE MIDNIGHT. GO LYTELY HAS BEEN CONSUMED. ON RA. A&O X4. ACHS CBG'S. HE IS A [facility]. HE IS INDEPENDENT IN THE ROOM. GI CONSULT IS DR. RICE.
[2024-11-01 05:16] LABS: BASOPHILS ABSOLUTE AUTO 0.01 K/mm3 (0.00-0.23); BASOPHILS PERCENT AUTO 0 % (0-2); EOSINOPHILS PERCENT AUTO 0 % (0-6); Hemoglobin 7.4 g/dL (13.5-17.5); IMMATURE GRAN PERCENT AUTO 1 % (0-1); LYMPHOCYTES ABSOLUTE AUTO 1.54 K/mm3 (0.84-5.20); LYMPHOCYTES PERCENT AUTO 12 % (21-46); MONOCYTES ABSOLUTE AUTO 0.78 K/mm3 (0.16-1.47); MONOCYTES PERCENT AUTO 6 % (4-13); Mean Corpuscular HGB 24.1 pg (26.0-34.0); Mean Corpuscular HGB Conc 30.8 g/dL (31.5-36.5); Mean Corpuscular Volume 78 fL (80-100); Mean Platelet Volume 9.3 fL (9.1-12.4); NEUTROPHILS ABSOLUTE AUTO 10.71 K/mm3 (1.96-9.15); NEUTROPHILS PERCENT AUTO 82 % (41-73); Platelet Count 281 K/mm3 (150-400); RDW Coefficient Variation 15.9 % (11.7-14.2); RDW Standard Deviation 44.2 fL (35.1-46.3); Red Blood Cell Count 3.07 M/mm3 (4.30-5.90); White Blood Cell Count 13.14 K/mm3 (4.00-11.30)
[2024-11-01 05:35] LABS: Albumin, Blood 2.4 g/dL (3.4-5.0); Albumin/Globulin Ratio 0.6 (0.8-1.8); Bilirubin, Total 0.6 mg/dL (0.1-1.0); Bun/Creatinine Ratio 36.6 (12.0-20.0); Calcium, Blood 8.6 mg/dL (8.5-10.1); Creatinine, Blood 0.66 mg/dL (0.60-1.20); Globulin, Blood 3.7 g/dL (2.2-4.0); Potassium, Blood 3.6 mmol/L (3.5-5.5); Total Protein, Blood 6.1 g/dL (6.4-8.2)
--- NOTE | 2024-11-01 07:48 | NUR ---
PATIENT LEFT FLOOR WITH SURGICAL STAFF
[2024-11-01] MEDS ORDERED: Lactated Ringer's 1,000 ML IV SCH (07:55)
[2024-11-01] MEDS ORDERED: propofoL 50 ML IV ONE (08:30)
--- NOTE | 2024-11-01 08:35 | NUR ---
11/01/24 0835 Daxa Delacruz MAC CASE WITH NGOZI MCKEON CRNA; SEE ANESTHESIA RECORDS.
[2024-11-01] MEDS ORDERED: Lidocaine 2% Jelly Uro-Jet ONE (08:49)
[2024-11-01] MEDS ORDERED: Ferrous Sulfate 325 MG Tab PO SCH (09:00)
[2024-11-01] MEDS ORDERED: Phenylephrine HCl 10mg/ml 1 ml Vial ONE (09:05)
[2024-11-01] MEDS ORDERED: propofoL 20 ML IV ONE (09:23)
[2024-11-01] MEDS ORDERED: Lactated Ringer's 1,000 ML IV ONE ×2 (12:35→12:40)
[2024-11-01] MEDS ORDERED: Nitroglycerin 0.4 MG SUBL ONE (12:41)
[2024-11-01] MEDS ORDERED: Aspirin 325 MG Tab PO ONE (12:45)
[2024-11-01] MEDS ORDERED: Nitroglycerin 0.4 MG SUBL SL PRN (12:45)
[2024-11-01] MEDS ORDERED: Pantoprazole Sodium 40 MG Injection IV ONE (12:55)
[2024-11-01] MEDS ORDERED: Mag Hydrox/Al Hydrox/Simeth 18 ML,Lidocaine 2% Viscous Soln 9 ML,Atropine/Scopalam/Hyos... PO ONE (13:00)
[2024-11-01] MEDS ORDERED: Pantoprazole Sodium 40 MG Injection IV STA (13:01)
[2024-11-01 13:03] LABS: Base Excess Venous 1.1 mmol/L; Bicarbonate Venous 25.5 mmol/L (24.0-30.0); PCO2 Venous 29.4 mmHg (38-42); pH Blood Venous 7.52 (7.34-7.37)
[2024-11-01 13:05] LABS: Hematocrit 23.8 % (37.0-53.0); Hemoglobin 7.3 g/dL (13.5-17.5)
[2024-11-01 13:39] LABS: Albumin, Blood 2.5 g/dL (3.4-5.0); Albumin/Globulin Ratio 0.7 (0.8-1.8); Bilirubin, Total 0.5 mg/dL (0.1-1.0); Bun/Creatinine Ratio 29.8 (12.0-20.0); Calcium, Blood 8.5 mg/dL (8.5-10.1); Creatinine, Blood 0.74 mg/dL (0.60-1.20); Globulin, Blood 3.6 g/dL (2.2-4.0); Magnesium, Blood 2.3 mg/dL (1.6-2.4); Potassium, Blood 3.4 mmol/L (3.5-5.5); Thyroid Stimulating Hormone 2.37 uIU/mL (0.360-4.800); Total Protein, Blood 6.1 g/dL (6.4-8.2)
[2024-11-01] MEDS ORDERED: Morphine Sulfate 4 MG/1 ML Injection IV PRN (13:40)
--- NOTE | 2024-11-01 13:49 | NUR ---
PT OFF FLOOR IN ROUTE TO ICU ROOM 14
--- NOTE | 2024-11-01 13:51 | NUR ---
RAPID RESPONSE INITIATED PATIENT SITTING IN CHAIR, PUSHED CALL LIGHT AND C/O NAUSEA. OBTAINED EMESIS BAG TO WHICH PATIENT VOMITED, BROWN/GREEN LIQUID WITH UNDIGESTED PILLS. C/O CHEST PAIN AND SOB, MAKING STATEMENTS THAT HE FEELS LIKE HE IS HAVING A HEART ATTACK. ASSISTED PATIENT BACK TO BED, CALLED STATUS CONTROLLER FOR EKG MACHINE. PATIENT FLUSH AND TACHYPNIC AT THIS TIME. STATUS CONTROLLER ARRIVED WITH ANOTHER RN, EKG INITIATED, VITALS TAKEN TO SHOW HYPOTENSION. RAPID RESPONSE INITITATED, CHARGE MADE AWARE, PATIENT PLACED ON OXYGEN FOR DEMAND. DR BATRES ARRIVED WITH RAPID TEAM. DR TALBOT ARRIVED SHORTLY AFTER, ALL MEMBERS WERE UPDATED WITH SHIFT UP TO NOW. SEE RAPID PAPERWORK FOR DETAILS PATIENT EVENTUALLY TRANSFERED TO PCU STATUS ICU ROOM 14.
--- NOTE | 2024-11-01 14:13 | NUR ---
SPOKE WITH EZRA, UPDATED ON CONDITION AND ROOM MOVE. STATED SHE IS ON HER WAY BACK IN.
[2024-11-01] MEDS ORDERED: Aspirin 81 MG Chew PO STA (14:23)
--- NOTE | 2024-11-01 15:37 | NUR ---
PATIENT WAS GIVEN AM MEDS LATE, WAS IN PROCEDURE. VOMITED WHAT APPEARED TO BE ALL MEDS CHARTED IN THE NOON HOUR SHORTLY AFTER ADMINISTRATION.
[2024-11-01] MEDS ORDERED: PredniSONE 20 MG Tab PO ONE (16:00)
[2024-11-01] MEDS ORDERED: Potassium Chloride 10 Meq Tablet SA PO ONE (16:20)
--- NOTE | 2024-11-01 16:32 | NUR ---
PT TO ICU 14 VIA HOSPITAL BED, ACCOMPANIED BY MED FLOOR RN AND MASK FORMER. PT ALERT AND ORIENTED X 4. STATES THIS HIS CHEST PAIN IS AT AN 8/10 AND ENDORSES SOB. RECEIVING 4LPM O2 VIA NC AT TIME OF ARRIVAL. CONTINOUS CARDIAC MONITORING IN PLACE SHOWS AFIB, HR IN 80'S. DAUGHTER TO BEDSIDE AND UPDATED ON PLAN OF CARE, TO ARRIVE SHORTLY. SEE SHIFT ASSESSMENT FOR FULL DETAILS.
[2024-11-01] MEDS ORDERED: Acetaminophen 500 MG Tab PO PRN (16:45)
[2024-11-01 16:52] LABS: Source, Urine Clean Catch
[2024-11-01] MEDS ORDERED: Furosemide 10 MG / ML 2ML Vial IV ONE (17:00)
[2024-11-01 17:05] LABS: Bilirubin, Urine Neg (Neg); Blood, Urine Neg (Neg); Color, Urine Yellow (P-Yellow); Glucose Qualitative, Urine Neg (Neg); Ketones, Urine Neg (Neg); Leukocyte Esterase, Urine Neg (Neg); Nitrite, Urine Neg (Neg); Protein, Urine 1+ (Neg); Specific Gravity, Urine 1.015 (1.003-1.022); Urobilinogen, Urine NORM (Normal)
[2024-11-01 17:27] LABS: Appearance, Urine Clear (Clear)
--- NOTE | 2024-11-01 17:37 | NUR ---
CRITICAL TROPONIN CALL FROM LAB TO THIS RN WITH A CRITICAL TROPONIN OF 1791. DISCUSSED WITH CHARGE NURSE LIU WHO RELAYED INFORMATION TO DR. TALBTO. DR. TALBOT CONSULTED DR. YANG WHO STATES HE WILL BE IN TONIGHT TO SEE PATIENT TO DISCUSS PLAN OF CARE.
--- NOTE | 2024-11-01 17:44 | NUR ---
SHIFT SUMMARY PT REMAINED ALERT AND ORIENTED X 4 T/O ENTIRETY OF SHIFT. ABLE TO FOLLOW COMMANDS, MAKE PURPOSEFUL MOVEMENTS, AND MAKE NEEDS KNOWN. AFEBRILE. CONTINUOUS CARDIAC MONITORING IN PLACE SHOWS AFIB WITH HR IN 90'S-100'S, BP STABLE WITH MAP MAINTAINING > 65. REPORTED CP AT 8/10 THAT INITIALLY WAS NOT RESOLVED WITH 2MG MORPHINE. ADDITONAL MORPHINE GIVEN WITH TYLENOL, WHICH PT STATES REDUCED PAIN DOWN TO 3/10. ON 4LPM O2 VIA NC WITH O2 SATURATION > 92%. ENDORSED SOB WHICH WAS IMPROVED WITH NITRO, LASIX, NEB TX, AND MORPHINE. DENIES N/V. TOLERATED PO MEDS AND FLUID INTAKE. UTILIZES BEDSIDE URINAL WITHOUT DIFFICULTY. 2 PERIPHAL IV'S TO RA. FAMILY AT BEDSIDE AND UPDATED. WILL CONTINUE TO MONITOR AND REPORT TO ONCOMING RN.
--- NOTE | 2024-11-01 17:55 | NUR ---
CALL TO DR. RICE INFORMED DR. RICE OF PT CONDITION, MD, AND CONVERSATION WITH HOSPITALIST/COMMUNITY PLACEMENT WORKER. VERBAL TO HOLD GLYTELY AND WILL REASSESS FOR SCOPE AT A LATER DATE.
[2024-11-01] MEDS ORDERED: Peg/Electrolytes 4,000 ML BTL PO ONE (18:00)
[2024-11-01] MEDS ORDERED: Furosemide 10 MG/ML 4ML Vial IV SCH (18:45)
[2024-11-01] MEDS ORDERED: FentaNYL Citrate 50 MCG/ML 2 ML Injection IV PRN (18:45)
--- NOTE | 2024-11-01 20:00 | NUR ---
ASSUMED CARE OF PT AT 1900. REPORT RECEIVED. PT PRESENTS IN RECLINER CHAIR. PT ALERT AND ORIENTED. PLEASANT AND COOPERATIVE WITH CARE AND ASSESSMENT. PT'S IN ROOM AND PT'S DAUGHTER. PT HAS REQUESTED THAT HIS AND DAUGHTER GO HOME FOR THE NIGHT. PT HAS HOME CPAP THAT HE IS USING. HAS REQUESTED A CUP OF COFFEE WHICH DR YANG HAD OK'D. WILL REVIEW CHART AND PLAN OF CARE FOR THIS PT.
[2024-11-02] VITALS (18 sets, daily range): BP systolic 66–124; BP diastolic 56–85
[2024-11-02 04:44] LABS: BASOPHILS ABSOLUTE AUTO 0.02 K/mm3 (0.00-0.23); BASOPHILS PERCENT AUTO 0 % (0-2); EOSINOPHILS PERCENT AUTO 0 % (0-6); Hematocrit 27.4 % (37.0-53.0); Hemoglobin 8.5 g/dL (13.5-17.5); IMMATURE GRAN PERCENT AUTO 2 % (0-1); LYMPHOCYTES ABSOLUTE AUTO 1.32 K/mm3 (0.84-5.20); LYMPHOCYTES PERCENT AUTO 8 % (21-46); MONOCYTES ABSOLUTE AUTO 0.73 K/mm3 (0.16-1.47); MONOCYTES PERCENT AUTO 5 % (4-13); Mean Corpuscular HGB 24.9 pg (26.0-34.0); Mean Corpuscular Volume 80 fL (80-100); NEUTROPHILS ABSOLUTE AUTO 14.01 K/mm3 (1.96-9.15); NEUTROPHILS PERCENT AUTO 86 % (41-73); NRBC ABSOLUTE 0.03 K/mm3 (0.00-0.02); NRBC Auto 0.2 /100 WBC (0.0-0.2); Platelet Count 292 K/mm3 (150-400); RDW Coefficient Variation 15.9 % (11.7-14.2); RDW Standard Deviation 45.1 fL (35.1-46.3); Red Blood Cell Count 3.41 M/mm3 (4.30-5.90); White Blood Cell Count 16.38 K/mm3 (4.00-11.30)
[2024-11-02] MEDS ORDERED: EpiNEPhrine 1 MG/1 ML 1ML Vial ONE (04:52)
[2024-11-02 05:11] LABS: Albumin, Blood 2.7 g/dL (3.4-5.0); Albumin/Globulin Ratio 0.7 (0.8-1.8); Bilirubin, Total 1.3 mg/dL (0.1-1.0); Bun/Creatinine Ratio 33.8 (12.0-20.0); Calcium, Blood 8.5 mg/dL (8.5-10.1); Creatinine, Blood 0.98 mg/dL (0.60-1.20); Globulin, Blood 3.7 g/dL (2.2-4.0); Potassium, Blood 4.7 mmol/L (3.5-5.5); Total Protein, Blood 6.4 g/dL (6.4-8.2)
--- NOTE | 2024-11-02 06:20 | NUR ---
Spiritual care visitation conducted. Spouse at the bedside and welcomed pastoral presence. Opportunity given for reflection and emotional decompression. Spouse appears to be grieving appropriately considering the patient's quickened demise. Empathic listening, normalization of felt expression and prayer were offered.
--- NOTE | 2024-11-02 06:54 | NUR ---
AT 0435 THIS MORNING, PT NOTED TO HAVE DECREASE IN SATURATION AND HEART RATE BEGAN TO DECREASE. UPON GOING INTO ROOM, PT WAS IN RECLINER CHAIR WITH HIS HEAD SLUMPED OFF TO THE LEFT SIDE. TRIED TO AROUSE PT WITHOUT SUCCESS. DID DO AN AGGRESSIVE STERNAL RUB WITH NO RESPONSE. PT WAS AGONAL BREATHING, WITH JOLLY AVILA AND NICOL CALIXTO, AND THIS RN. TOOK PT FROM RECLINER CHAIR AND PLACED TO FLOOR. PT FOUND TO BE IN PEA AND CPR INTITIATED. WITH 2 MINUTE PULSE CHECK, ROLLED PT TO PLACE PADS, AND BATH BLANKET UNDER PT. LIFTED PT WITH 5 PERSON LIFT TO BED AND ONTO BACKBOARD. CPR RESUMED. VERY MINIMAL INTERUPTION IN CPR TO ACHIEVE. PT'S TIME OF WAS AT 0500 THIS AM. PLEASE SEE CODE BLUE SHEET FOR DETAIL OF CODE WITH MEDICATION.
--- NOTE | 2024-11-02 10:17 | NUR ---
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 Family wanted pts body to go to [facility] there after. Told this to [facility].
--- NOTE | 2024-11-02 10:21 | NUR ---
Home UPDATE [facility] does not have a contract with [facility] and prefers we contact [facility] instead. Called [facility] at [phone] again and left a message for Nava Nelson. Awaiting a response back.
[2024-11-02] MEDS ORDERED: EPINEPhrine HCl 0.1 MG/ML 10ML SYR IV ONE (14:30)
== END 2024-11-02 05:00 | DRG 377 ==
LOC: ER 11:13 → MEDS 15:34 → ICUE 15:34 → MEDS 16:20 → ICUE 11-01 13:54
PROVIDERS: Emergency Medicine; Internal Medicine Gastroenterology; Physician Assistant; ADMIT Family Medicine
PROC: 0DB78ZX Excision of Stomach, Pylorus, Via Natural or Artificial Opening Endoscopic, Diagnostic (ICD-10-PCS; principal; 2024-10-30 22:30)
PROC: 0DBL8ZZ Excision of Transverse Colon, Via Natural or Artificial Opening Endoscopic (ICD-10-PCS; 2024-11-01)
PROC: 30233N1 Transfusion of Nonautologous Red Blood Cells into Peripheral Vein, Percutaneous Approach (ICD-10-PCS; 2024-11-01)
PROC: 0DBM8ZZ Excision of Descending Colon, Via Natural or Artificial Opening Endoscopic (ICD-10-PCS; 2024-11-01 08:00)
PROC: 5A12012 Performance of Cardiac Output, Single, Manual (ICD-10-PCS; 2024-11-02)
DX: K92.1 Melena (principal); I21.9 Acute myocardial infarction, unspecified; D62 Acute posthemorrhagic anemia; I48.21 Permanent atrial fibrillation; J44.1 Chronic obstructive pulmonary disease with (acute) exacerbation; R65.10 Systemic inflammatory response syndrome (SIRS) of non-infectious origin without acute organ dysfunction; I48.20 Chronic atrial fibrillation, unspecified; I25.10 Atherosclerotic heart disease of native coronary artery without angina pectoris; E11.9 Type 2 diabetes mellitus without complications; F10.21 Alcohol dependence, in remission; N40.0 Benign prostatic hyperplasia without lower urinary tract symptoms; F17.210 Nicotine dependence, cigarettes, uncomplicated; K31.7 Polyp of stomach and duodenum; I44.7 Left bundle-branch block, unspecified; I35.0 Nonrheumatic aortic (valve) stenosis; I95.9 Hypotension, unspecified; B95.62 Methicillin resistant Staphylococcus aureus infection as the cause of diseases classified elsewhere; E78.5 Hyperlipidemia, unspecified; I10 Essential (primary) hypertension; I50.9 Heart failure, unspecified; K64.4 Residual hemorrhoidal skin tags; B95.61 Methicillin susceptible Staphylococcus aureus infection as the cause of diseases classified elsewhere; Z88.0 Allergy status to penicillin; Z79.51 Long term (current) use of inhaled steroids; Z79.899 Other long term (current) drug therapy; Z79.01 Long term (current) use of anticoagulants; Z79.84 Long term (current) use of oral hypoglycemic drugs; Z79.811 Long term (current) use of aromatase inhibitors; Z95.5 Presence of coronary angioplasty implant and graft; Z98.890 Other specified postprocedural states; Z28.29 Immunization not carried out because of patient decision for other reason
CPT/HCPCS: 0202U; 0528U; 31500; 36415; 36430; 71045; 71046; 71260; 80053; 82272; 82803; 82947; 83540; 83550; 83605; 83735; 83880; 84145; 84443; 84484; 85014; 85018; 85025; 85027; 85379; 85610; 85730; 86850; 86900; 86901; 86923; 87040; 87428-QW; 88305; 88341; 88342; 92950; 93005; 93010; 93308; 93321; 94640; 94664; 94760; 94762; 99284-25; A9270; C1751; J0171; J0456; J0696; J1940; J2003; J2270; J2371; J2470; J2704; J3010; J7050; J7120; J7512; P9016; Q9967